=== PATIENT | male | born 1950 | race Native Hawaiian/Other Pacific Islander ===

== ENCOUNTER 2017-11-03 18:43 | Emergency (ER) | payer OTHER ==
[~2017-11-03] VITALS: Ht 177.8 cm; Wt 68.9 kg
[2017-11-03 19:22] LABS: PLATELET COUNT 220 K/uL (142-355)
[2017-11-03 19:31] LABS: POTASSIUM 4.1 mmol/L (3.6-5.2)
[2017-11-03 21:57] VITALS: BP 144/83; TEMP 97.6
== END 2017-11-03 21:59 | disposition home or self-care (01) ==
LOC: ED 18:43
DX: N20.1 Calculus of ureter (principal); I77.811 Abdominal aortic ectasia
CPT/HCPCS: 80053; 81000; 85027; 96365; 96374; 96375; 96376; 99284; J1885; J2175; J2405

== ENCOUNTER 2019-01-20 07:47 | Outpatient (CLI) | payer OTHER | END 2019-01-20 21:46 | disposition home or self-care (01) | LOC: CT 07:47 | DX: R25.1 Tremor, unspecified (principal) | CPT/HCPCS: 36415; 82565; 84520 ==

== ENCOUNTER 2019-10-17 08:38 | Outpatient (CLI) | payer OTHER | END 2019-10-17 22:04 | disposition home or self-care (01) | LOC: CT 08:38 | DX: Z12.2 Encounter for screening for malignant neoplasm of respiratory organs (principal); Z87.891 Personal history of nicotine dependence; J43.8 Other emphysema ==

== ENCOUNTER 2020-07-02 13:39 | Inpatient (IN) | payer OTHER ==
[~2020-07-02] VITALS: Ht 177.8 cm; Wt 71.8 kg
[2020-07-02] MEDS ORDERED: TRELEGY ELLIPTA1 AER INH (15:36)
[2020-07-02] MEDS ORDERED: METO25TA4 PO (15:37)
[2020-07-02] MEDS ORDERED: PROP40TA53 PO (15:39)
[2020-07-02] MEDS ORDERED: EUTHYROX50 MCG PO (15:40)
[2020-07-02] MEDS ORDERED: COZAAR25 MG PO (15:41)
[2020-07-02 16:38] LABS: PLATELET COUNT 137 K/uL (142-355)
[2020-07-02 17:30] LABS: POTASSIUM 4.1 mmol/L (3.6-5.2)
[2020-07-02 19:04] VITALS: BP 113/59; TEMP 99; Ht 177.8 cm; Wt 71.8 kg
[2020-07-02 20:00] VITALS: BP 139/65
[2020-07-02 20:12] VITALS: TEMP 98.6
[2020-07-03 00:08] VITALS: BP 100/58; TEMP 98.1
[2020-07-03 04:02] VITALS: BP 94/52; TEMP 98.9
[2020-07-03 08:00] VITALS: BP 113/62; TEMP 97.6
[2020-07-03 11:49] LABS: PLATELET COUNT 148 K/uL (142-355)
[2020-07-03 12:00] VITALS: BP 103/69; TEMP 97.9
[2020-07-03 12:40] LABS: POTASSIUM 4.1 mmol/L (3.6-5.2)
[2020-07-03 16:00] VITALS: BP 101/81; TEMP 98
[2020-07-03 19:58] VITALS: BP 99/64; TEMP 98.1
[2020-07-04] VITALS (7 sets, daily range): BP systolic 110–128; BP diastolic 60–69; TEMP 97.7–98.6
[2020-07-04 05:48] LABS: PLATELET COUNT 144 K/uL (142-355)
[2020-07-04 09:26] LABS: POTASSIUM 4.2 mmol/L (3.6-5.2)
[2020-07-05 04:00] VITALS: BP 128/72; TEMP 98.4
[2020-07-05 08:00] VITALS: BP 143/74; TEMP 98
[2020-07-05 12:00] VITALS: BP 121/50; TEMP 98
[2020-07-05 16:00] VITALS: BP 150/74; TEMP 97.9
[2020-07-05 20:00] VITALS: BP 132/75; TEMP 98.2
[2020-07-06 00:13] VITALS: BP 144/73; TEMP 98.3
[2020-07-06 04:00] VITALS: BP 138/67; TEMP 98.7
[2020-07-06 06:12] LABS: PLATELET COUNT 224 K/uL (142-355)
[2020-07-06 06:29] LABS: POTASSIUM 3.5 mmol/L (3.6-5.2)
[2020-07-06 08:00] VITALS: BP 143/74; TEMP 98.2
== END 2020-07-06 10:41 | disposition home or self-care (01) | DRG 177 ==
LOC: MED/SURG 13:39
PROVIDERS: ADMIT Family Medicine
DX: U07.1 COVID-19 (principal); J18.8 Other pneumonia, unspecified organism; E46 Unspecified protein-calorie malnutrition; I10 Essential (primary) hypertension; R09.02 Hypoxemia; E03.8 Other specified hypothyroidism; J44.9 Chronic obstructive pulmonary disease, unspecified; E83.42 Hypomagnesemia; G25.0 Essential tremor; N28.9 Disorder of kidney and ureter, unspecified; D72.818 Other decreased white blood cell count
CPT/HCPCS: 36415; 36600; 80053; 82728; 82805; 83735; 84100; 85027; 85379; 86140; 87040; 94667; 94668; J0456; J1650; J1885; J3475

== ENCOUNTER 2020-12-08 14:37 | Outpatient (CLI) | payer OTHER ==
[~2020-12-08 14:37] MED LIST: COZAAR25 MG PO; EUTHYROX50 MCG PO; METO25TA4 PO; PROP40TA53 PO; TRELEGY ELLIPTA1 AER INH
== END 2020-12-08 23:59 | disposition home or self-care (01) ==
LOC: INF 14:37
PROVIDERS: ATTEND Internal Medicine
DX: Z23 Encounter for immunization (principal)
CPT/HCPCS: 96372

== ENCOUNTER 2021-01-05 14:35 | Outpatient (CLI) | payer OTHER | END 2021-01-05 22:04 | disposition home or self-care (01) | LOC: INF 14:35 | PROVIDERS: ATTEND Internal Medicine | DX: Z23 Encounter for immunization (principal) | CPT/HCPCS: 96372 ==